=== PATIENT | female | born 1945 | race Caucasian/White ===

== ENCOUNTER 2017-12-26 13:19 | Outpatient (CLI) | payer MEDICARE | END 2017-12-26 13:20 | disposition home or self-care (01) | LOC: BICMAMMO 13:19 | PROVIDERS: ATTEND Family Medicine | DX: Z12.31 Encounter for screening mammogram for malignant neoplasm of breast (principal) | CPT/HCPCS: 77063; 77067 ==

== ENCOUNTER 2018-10-29 12:36 | Outpatient (CLI) | payer MEDICARE ==
[2018-10-29 13:15] LABS: ALT (SGPT) 17 U/L (8-55); AST (SGOT) 18 U/L (5-34); Albumin 4.1 g/dL (3.4-4.8); Alkaline Phosphatase 80 U/L (40-150); Anion Gap 13 mmol/L (10-20); BUN (Urea Nitrogen) 9 mg/dL (9.8-20.1); Bilirubin, Total 0.4 mg/dL (0.2-1.2); Calc. Creatinine Clearance 0 mL/min (70-130); Calcium 9.8 mg/dL (7.8-10.44); Carbon Dioxide 29 mmol/L (23-31); Chloride 87 mmol/L (98-107); Estimated GFR-MDRD 76; Globulin 2.5 g/dL (2.4-3.5); Glucose 93 mg/dL (83-110); Potassium 4.1 mmol/L (3.5-5.1); Protein, Total 6.6 g/dL (6.0-8.3); Sodium 125 mmol/L (136-145)
--- NOTE | 2018-10-29 13:36 | RAD ---
PORTABLE AP CHEST XRAY: DATE: 10/29/2018. HISTORY: Shortness of breath. COMPARISON: 08/23/2017. FINDINGS: Dual-lead left subclavian cardiac pacemaking device is again noted in place. Postsurgical changes re lated to median sternotomy and cardiac valve replacement are again noted. There is prominent right s coliosis of the thoracic spine with compensatory curvature of the lower thoracic and upper lumbar spi ne. Cardiac silhouette and pulmonary vasculature are within normal limits. The lungs are clear. Va scular calcification is seen in the thoracic aorta. IMPRESSION: 1. No acute cardiopulmonary process. 2. Severe scoliosis of the thoracic spine. POS: [facility]
[2018-10-29 13:42] LABS: Band 2 % (5-11); Eosinophils 1 % (0-10); Hemoglobin 10.4 g/dL (12.0-16.0); Hypochromia SLIGHT = 6-15 cells (100X) (0-5/hpf); Lymphocytes 11 % (21-51); MDiff Complete? YES; Mean Corpuscular Hemoglobin 23.2 pg (27.0-31.0); Mean Platelet Volume 8.5 fL (7.4-10.4); Microcytosis SLIGHT = 6-15 cells (100X) (0-5/hpf); Monocytes 10 % (0-10); Neutrophil 75 % (42-75); Ovalocytes SLIGHT = 2-5 cells (100X) (0-1/hpf); Platelet Count 368 thou/uL (130-400); Platelet Morphology Comment Appears Adequate; RBC Distribution Width 15.9 % (11.5-14.5); Red Blood Cell (RBC) Count 4.47 mill/uL (4.20-5.40); Stomatocytes SLIGHT = 2-5 cells (100X) (0-1/hpf)
[2018-10-29 13:46] LABS: Free T4 (Free Thyroxine) 1.38 ng/dL (0.70-1.48); Thyroid Stimulating Hormone 2.3389 uIU/mL (0.35-4.94)
== END 2018-10-29 12:37 | disposition home or self-care (01) ==
LOC: SCSRAD 12:36
PROVIDERS: ATTEND Family Medicine
DX: R06.02 Shortness of breath (principal); E03.9 Hypothyroidism, unspecified; R53.81 Other malaise; M41.9 Scoliosis, unspecified
CPT/HCPCS: 36415; 71046; 80053; 83880; 84439; 84443; 85025

== ENCOUNTER 2018-10-30 10:08 | Inpatient (IN) | payer MEDICARE ==
[2018-10-30 11:21] LABS: Troponin I Less than 0.010 ng/mL (< 0.028)
[2018-10-30 13:09] LABS: Bilirubin Negative (Negative); Blood, Urine Negative (Negative); Clarity CLEAR (Clear); Glucose, Urine (Dipstick) Negative (Negative); Leukocyte Moderate (Negative); Nitrite Negative (Negative); Protein, Urine (Dipstick) Negative (Neg-Trace); Specific Gravity, Urine 1.007 (1.002-1.036); Urobilinogen 0.2 mg/dL (0.2-1.0)
[2018-10-30 13:14] LABS: Sodium, Urine 55 mmol/L (Not Available)
[2018-10-30 13:16] LABS: Bacteria/HPF 4+ HPF (None Seen); Hyaline Casts/LPF 0-3 HYALINE CAST LPF (0-3 Hyaline); Pathc Cast-AUWi Flag 0.29 (0-2.49); RBC/HPF 0-3 HPF (0-3); Squamous Epithelial 0-3 HPF (0-3)
[2018-10-30 13:24] LABS: Anion Gap 14 mmol/L (10-20); BUN (Urea Nitrogen) 9 mg/dL (9.8-20.1); Calc. Creatinine Clearance 0 mL/min (70-130); Calcium 9.4 mg/dL (7.8-10.44); Carbon Dioxide 27 mmol/L (23-31); Chloride 86 mmol/L (98-107); Estimated GFR-MDRD 76; Glucose 94 mg/dL (83-110); Potassium 4.1 mmol/L (3.5-5.1); Sodium 123 mmol/L (136-145)
[2018-10-30] MEDS ORDERED: Acetaminophen 325 MG TAB PO PRN (14:55)
[2018-10-30] MEDS ORDERED: Ondansetron PF 4 MG/2 ML Vial IVP PRN (14:55)
[2018-10-30] MEDS ORDERED: Ondansetron ODT 4 MG TAB SL PRN (14:55)
[2018-10-30 15:04] VITALS: BMI 33.3
[2018-10-30 15:53] LABS: Osmolality, Urine 198 mOsm/kg (200-1150)
[2018-10-30] MEDS ORDERED: Albuterol Sulfate 1.25 MG/3 ML NEB NEB SCH (19:00)
[2018-10-30] MEDS ORDERED: Sodium Chloride 0.9% 500 ML IV SCH (19:00)
[2018-10-30 19:55] LABS: Sodium 124 mmol/L (136-145)
[2018-10-30] MEDS: Lisinopril 20 MG TAB PO SCH ×2 (20:59→21:01)
--- NOTE | 2018-10-30 20:59 | HP ---
REASON FOR ADMISSION: Hyponatremia. HISTORY OF PRESENT ILLNESS: Ms. Leonardo is a pleasant 73-year-old woman who has been referred to the ED by her primary care physician, Dr. Harding due to labs indicated that she is hyponatremic. The patient was seen by Dr. Harding yesterday due to complaints of shakiness and lightheadedness for the last 2 to 3 weeks. She denies a spinning sensation and states that she feels weak and off balance when she stands. She states she has had increased shortness of breath with exertion for the last 2-3 months. She underwent a chest x-ray after seeing Dr. Harding yesterday, which showed no acute cardiopulmonary changes. It did demonstrate severe scoliosis of the thoracic spine. Otherwise unremarkable. The patient's sodium has chronically been low in the low 130s, however, today it came back at 123. The patient is asymptomatic from this. Apparently, she has been drinking excess fluids due to Sjogren syndrome. She is also on hydrochlorothiazide. The patient states she has a history of valve disorder and previously underwent a valve replacement. She is followed by Dr. Jones, who she was scheduled to see tomorrow. Additional laboratory studies were obtained in the ER and again the sodium was low 123. BUN 9, creatinine 0.75, eGFR 76. Her serum osmolality is 253 and urine osmolality is 198 with a urine sodium of 55. REVIEW OF SYSTEMS: Ms. Leonardo states she has felt generally unwell for the last 2-3 months with regard to a decreased appetite. She continues to eat and drink, but states she notices it is less than her usual. Since August, she has lost approximately 6 pounds. She reports feeling very tired and has been quite sedentary since early this week. She denies having any fevers, chills, or sweats. Denies having any headaches or dizziness. She just complains of general malaise and occasional tremors in both hands, which has been going on for about a week. Again, she mentions lightheadedness whenever she stands and increased shortness of breath with exertion for the last two weeks. Denies any chest pain. No cough or hemoptysis. Denies having any nausea or vomiting. No abdominal pain or cramping. Denies having any urinary symptoms. No bowel changes. All other review of systems are negative. PAST MEDICAL HISTORY: 1. Allergy-induced aspirin. 2. Hypothyroidism. 3. Pacemaker in place. 4. Status post aortic valve replacement. 5. Sjogren syndrome. 6. Restless legs syndrome. 7. Hypertension. PAST SURGICAL HISTORY: 1. Previous aortic valve replacement. 2. Status post permanent pacemaker. She is status post dual-chamber pacemaker. SOCIAL HISTORY: The patient lives with her . She is normally fully independent and does not require any assistive devices for mobility. Denies any smoking history or alcohol use. ALLERGIES: 1. ATROPINE. 2. PENICILLINS. CURRENT MEDICATIONS: 1. Hydrochlorothiazide 25 mg p.o. daily. 2. Bupropion SR 100 mg p.o. twice daily. 3. Evoxac 30 mg p.o. 3 times daily. 4. two puffs inhaled daily. 5. Esomeprazole 10 mg p.o. daily. 6. Levothyroxine 100 mcg p.o. daily. 7. Lisinopril 20 mg p.o. b.i.d. 8. Metoprolol succinate 25 mg p.o. b.i.d. PHYSICAL EXAMINATION: GENERAL: The patient appears well developed, well nourished, is in no acute distress. VITAL SIGNS: Temperature 98.1, pulse 78, respirations 16, O2 saturation 94% on room air, blood pressure 114/54. HEENT: Normocephalic and atraumatic. Pupils are equal, round, and reactive to light. Sclerae are without icterus. Oropharynx is clear. NECK: Supple without lymphadenopathy. LUNGS: Notable for mild inspiratory wheeze on the anterior chest, otherwise all remaining lung holloway clear of any rhonchi, wheezes, or crackles. CARDIAC: Regular rate and rhythm. ABDOMEN: Soft, nontender, and nondistended. Normoactive bowel sounds present. EXTREMITIES: Without any edema, calf pain, swelling, or tenderness. NEUROLOGIC: Alert and oriented x3. SKIN: Without rash or jaundice. LABORATORY DATA: Investigations as mentioned above in HPI. Urinalysis, moderate leukocyte esterase, urine blood cell count 4-6, bacteria 4+. No nitrates. IMPRESSION AND PLAN: Ms. Leonardo is a pleasant 73-year-old woman, being admitted for management of the following. 1. Hyponatremia. The patient usually has a chronically low sodium in the low 130s, however, today is much lower at 123. She has been drinking more fluids due to Sjogren's and is on hydrochlorothiazide. 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 We will request fluid restriction of 1200 mL per day. We will check sodium every 4 hours. We will hold hydrochlorothiazide. 2. Progressive dyspnea on exertion. The patient has had increased shortness of breath on exertion for the last two months. She has had a previous aortic valve replacement and has a permanent pacemaker. She is followed by Dr. Jones, who she was due to see tomorrow. We have requested an echo and BNP. Day team to assess if cardiology input needed as inpatient or if patient okay to follow up as an outpatient. 3. Weakness. The patient states she has felt rather weak in the last couple of days. This could be due to general deconditioning and ongoing issues with her appetite. She did mention lightheadedness when standing. We will check orthostatic blood pressures. We will also rule out any underlying infection such as urinary tract infection. Urine culture requested. 4. Gastrointestinal prophylaxis. Resume home medications. 5. Hypertension. Monitor blood pressure and resume home medications. 6. Deep venous thrombosis prophylaxis. Mechanical SCDs. 7. Full code status. The patient does have a copy of her advance directives, which her will bring. Her surrogate decision maker is her , Mr. Sivakumar Leonardo. The patient's case was discussed with Dr. Castillo, who agrees with plan of care as described above. Job ID: [id number]
[2018-10-30 23:53] LABS: Sodium 125 mmol/L (136-145)
[2018-10-31] MEDS: Levothyroxine Sodium 100 MCG TAB PO SCH (05:25)
[2018-10-31 05:36] LABS: #Neutrophils 5.4 thou/uL (1.40-6.50); %Basophils 0.4 % (0.0-1.0); %Eosinophils 0.5 % (0.0-10.0); %Lymphocytes 13.4 % (21.0-51.0); %Monocytes 13.6 % (0.0-10.0); %Neutrophils 72.1 % (42.0-75.0); Hemoglobin 9.9 g/dL (12.0-16.0); Mean Corpuscular HGB CONC 31.3 g/dL (32.0-36.0); Mean Corpuscular Hemoglobin 23.9 pg (27.0-31.0); Mean Corpuscular Volume 76.6 fL (78.0-98.0); Mean Platelet Volume 8.6 fL (7.4-10.4); Platelet Count 327 thou/uL (130-400); RBC Distribution Width 15.5 % (11.5-14.5); Red Blood Cell (RBC) Count 4.13 mill/uL (4.20-5.40); White Blood Cell (WBC) Count 7.4 thou/uL (4.8-10.8)
[2018-10-31 05:57] LABS: ALT (SGPT) 14 U/L (8-55); AST (SGOT) 15 U/L (5-34); Albumin 3.6 g/dL (3.4-4.8); Alkaline Phosphatase 77 U/L (40-150); Anion Gap 12 mmol/L (10-20); BUN (Urea Nitrogen) 12 mg/dL (9.8-20.1); Bilirubin, Total 0.4 mg/dL (0.2-1.2); Calc. Creatinine Clearance 85 mL/min (70-130); Calcium 9.7 mg/dL (7.8-10.44); Carbon Dioxide 31 mmol/L (23-31); Chloride 87 mmol/L (98-107); Estimated GFR-MDRD 72; Globulin 2.2 g/dL (2.4-3.5); Glucose 88 mg/dL (83-110); Potassium 4.2 mmol/L (3.5-5.1); Protein, Total 5.8 g/dL (6.0-8.3); Sodium 126 mmol/L (136-145)
[2018-10-31] MEDS: Lisinopril 20 MG TAB PO SCH ×2 (09:47→22:52)
[2018-10-31] MEDS: Fluticasone Propionate Nasal Spray 16 gm Bottle NASAL SCH (09:48)
[2018-10-31 11:11] LABS: Sodium 125 mmol/L (136-145)
--- NOTE | 2018-10-31 12:59 | PDOC.PN ---
- Subjective Encounter Start Date: 10/31/18 Encounter Start Time: 12:58 Subjective: Admitted due to low sodium as well as weakness. No new problem. -: Patient with sjogrens associated with dry admitted to drinking water -: frequently. - Objective Vital Signs & Weight: Vital Signs (12 hours) Temp Pulse Resp BP BP Pulse Ox 10/31/18 12:00 98.5 F 77 16 118/56 L 97 10/31/18 08:00 98.1 F 72 20 135/63 96 10/31/18 05:23 98.3 F 67 16 112/56 L 97 Weight Weight 181 lb 1.6 oz I&O: 10/30/18 10/31/18 11/01/18 06:59 06:59 06:59 Intake Total 650 Output Total 1400 300 Balance -750 -300 Result Diagrams: 10/31/18 04:25 10/31/18 10:50 Phys Exam - Physical Examination HEENT: PERRLA, moist MMs Neck: no JVD, supple, full ROM Respiratory: no wheezing, no rales, no rhonchi Cardiovascular: RRR, no rub 3/3 systolic murmur noted Gastrointestinal: soft, non-tender, no distention, positive bowel sounds Obese. epigastric tenderness Musculoskeletal: no edema, pulses present Neurological: non-focal, normal sensation, moves all 4 limbs Psychiatric: normal affect, A&O x 3 Dx/Plan (1) Hyponatremia Code(s): E87.1 - HYPO-OSMOLALITY AND HYPONATREMIA Status: Acute Comment: This most likely due to HCTZ and excess free water intake due to dry mouth. SIADH is unlikely given low urine osmolality relaative to serum osmolality (2) Physical deconditioning Code(s): R53.81 - OTHER MALAISE Status: Acute (3) HTN (hypertension) Code(s): I10 - ESSENTIAL (PRIMARY) HYPERTENSION Status: Acute (4) Sjogrens syndrome Code(s): M35.00 - SICCA SYNDROME, UNSPECIFIED Status: Acute (5) S/P aortic valve replacement Code(s): Z95.2 - PRESENCE OF PROSTHETIC HEART VALVE Status: Acute (6) Status post placement of cardiac pacemaker Code(s): Z95.0 - PRESENCE OF CARDIAC PACEMAKER Status: Acute - Plan Await echo -: Water restriction to continue -: DC HCTZ -: Consult PT/OT * .
[2018-10-31] MEDS: Bupropion 100 MG SR TAB PO SCH ×2 (13:44→20:53)
[2018-10-31] MEDS: CEVIMELINE HCL PO SCH ×3 (18:50→21:00)
[2018-10-31] MEDS: Melatonin 3 MG TAB PO PRN (20:53)
[2018-10-31] MEDS ORDERED: Sodium Chloride 0.9% 10 ML ONE (22:47)
[2018-11-01] MEDS: Levothyroxine Sodium 100 MCG TAB PO SCH (06:22)
[2018-11-01 07:22] LABS: ALT (SGPT) 13 U/L (8-55); AST (SGOT) 15 U/L (5-34); Albumin 3.6 g/dL (3.4-4.8); Alkaline Phosphatase 77 U/L (40-150); Anion Gap 11 mmol/L (10-20); BUN (Urea Nitrogen) 10 mg/dL (9.8-20.1); Bilirubin, Total 0.4 mg/dL (0.2-1.2); Calc. Creatinine Clearance 86 mL/min (70-130); Calcium 9.2 mg/dL (7.8-10.44); Carbon Dioxide 30 mmol/L (23-31); Chloride 89 mmol/L (98-107); Estimated GFR-MDRD 73; Globulin 2.2 g/dL (2.4-3.5); Glucose 91 mg/dL (83-110); Potassium 3.9 mmol/L (3.5-5.1); Protein, Total 5.8 g/dL (6.0-8.3); Sodium 126 mmol/L (136-145)
[2018-11-01 08:01] LABS: Band 5 % (5-11); Hemoglobin 9.9 g/dL (12.0-16.0); Lymphocytes 9 % (21-51); MDiff Complete? YES; Mean Corpuscular HGB CONC 31.3 g/dL (32.0-36.0); Mean Corpuscular Volume 76.7 fL (78.0-98.0); Mean Platelet Volume 8.5 fL (7.4-10.4); Monocytes 13 % (0-10); Neutrophil 73 % (42-75); Platelet Count 328 thou/uL (130-400); RBC Distribution Width 15.5 % (11.5-14.5); Red Blood Cell (RBC) Count 4.11 mill/uL (4.20-5.40)
[2018-11-01] MEDS: CEVIMELINE HCL PO SCH ×3 (08:03→17:03)
[2018-11-01] MEDS ORDERED: Sodium Chloride 0.9% 10 ML ONE ×2 (08:55→17:50)
[2018-11-01] MEDS: Bupropion 100 MG SR TAB PO SCH ×2 (08:59→21:41)
[2018-11-01] MEDS: Lisinopril 20 MG TAB PO SCH ×2 (09:00→21:41)
[2018-11-01] MEDS: Sodium Chloride 0.9% 10 ML ONE (09:02)
[2018-11-01 09:43] LABS: Iron 19 ug/dL (50-170); Iron Binding Capacity, Total 325 mcg/dL (265-497)
[2018-11-01] MEDS ORDERED: IRON SUCROSE COMPLEX 100 MG/5 ML SLOW IVP SCH (10:00)
[2018-11-01] MEDS: Fluticasone Propionate Nasal Spray 16 gm Bottle NASAL SCH (11:09)
[2018-11-01] MEDS ORDERED: Iron Sucrose Complex 200 MG in Sodium Chloride 0.9% 100 ML IVPB SCH (11:15)
[2018-11-01] MEDS ORDERED: Sodium Chloride 0.9% 500 ML IV SCH (11:30)
--- NOTE | 2018-11-01 12:37 | PDOC.PN ---
- Subjective Encounter Start Date: 11/01/18 Encounter Start Time: 12:35 Subjective: FEELS WELL. SOME SHAKING AFTER SHE WALKED IN HALLWAYS -: care discussed w family over phone - Objective MAR Reviewed: Yes Vital Signs & Weight: Vital Signs (12 hours) Temp Pulse Resp BP BP BP Pulse Ox 11/01/18 11:56 98.3 F 77 18 122/58 L 96 11/01/18 09:00 116/56 L 11/01/18 07:00 98.2 F 76 14 116/56 L 97 11/01/18 04:30 98.5 F 75 18 124/61 11/01/18 00:58 98.4 F 82 16 139/63 Weight Weight 181 lb 1.6 oz I&O: 10/31/18 11/01/18 11/02/18 06:59 06:59 06:59 Intake Total 650 170 Output Total 1400 300 Balance -750 -130 Result Diagrams: 11/01/18 06:19 11/01/18 06:19 Additional Labs: Laboratory Tests 10/30/17 04/30/18 05/15/18 12:02 11:43 12:09 Sodium 132 L 129 L 130 L B-Natriuretic Peptide 08/22/18 10/29/18 10/30/18 15:18 12:40 12:52 Sodium 131 L 125 L 123 L B-Natriuretic Peptide 10/30/18 10/30/18 10/30/18 19:29 19:36 23:32 Sodium 124 L 125 L B-Natriuretic Peptide 93.2 10/31/18 10/31/18 11/01/18 04:25 10:50 06:19 Sodium 126 L 125 L 126 L B-Natriuretic Peptide Phys Exam - Physical Examination Constitutional: NAD HEENT: PERRLA, moist MMs, sclera anicteric, oral pharynx no lesions Neck: no nodes, no JVD, supple, full ROM Respiratory: no wheezing, no rales, no rhonchi, clear to auscultation bilateral Cardiovascular: RRR, no significant murmur, no rub Gastrointestinal: soft, non-tender, no distention, positive bowel sounds Musculoskeletal: no edema, pulses present Neurological: non-focal, normal sensation, moves all 4 limbs Psychiatric: normal affect, A&O x 3 Skin: no rash Dx/Plan (1) Hyponatremia Code(s): E87.1 - HYPO-OSMOLALITY AND HYPONATREMIA Status: Acute Comment: This most likely due to HCTZ and excess free water intake due to dry mouth. SIADH is unlikely given low urine osmolality relaative to serum osmolality (2) UTI (urinary tract infection) Status: Acute (3) MARY (iron deficiency anemia) Code(s): D50.9 - IRON DEFICIENCY ANEMIA, UNSPECIFIED Status: Chronic (4) HTN (hypertension) Code(s): I10 - ESSENTIAL (PRIMARY) HYPERTENSION Status: Acute (5) S/P aortic valve replacement Code(s): Z95.2 - PRESENCE OF PROSTHETIC HEART VALVE Status: Acute (6) Sjogrens syndrome Code(s): M35.00 - SICCA SYNDROME, UNSPECIFIED Status: Acute (7) Status post placement of cardiac pacemaker Code(s): Z95.0 - PRESENCE OF CARDIAC PACEMAKER Status: Acute - Plan plan discussed w/ family, out of bed/ambulate, DVT proph w/SCDs urine Cx. empiric IV ABx. -: cont fluid restriction.1000ml/day fo rnow.HCTZ stopped.Pt educated -: recheck sodium in afternoon and tomorrow am -: Chr hyponatremia w/o symptoms.Likely DC home tomorrow. -: will give IV iron today & start PO tomorrow * .ECHO results pending * am labs Review of Systems - Review of Systems Constitutional: weakness. negative: fever, chills, sweats, malaise, other ENT: negative: Ear Pain, Ear Discharge, Nose Pain, Nose Discharge, Nose Congestion, Mouth Pain, Mouth Swelling, Throat Pain, Throat Swelling, Other Respiratory: negative: Cough, Dry, Shortness of Breath, Hemoptysis, SOB with Excertion, Pleuritic Pain, Sputum, Wheezing Cardiovascular: negative: chest pain, palpitations, orthopnea, paroxysmal nocturnal dyspnea, edema, light headedness, other Gastrointestinal: negative: Nausea, Vomiting, Abdominal Pain, Diarrhea, Constipation, Melena, Hematochezia, Other Genitourinary: negative: Dysuria, Frequency, Incontinence, Hematuria, Retention , Other Musculoskeletal: negative: Neck Pain, Shoulder Pain, Arm Pain, Back Pain, Hand Pain, Leg Pain, Foot Pain, Other Neurological: negative: Weakness, Numbness, Incoordination, Change in Speech, Confusion, Seizures, Other - Medications/Allergies Allergies/Adverse Reactions: Allergies Allergy/AdvReac Type Severity Reaction Status Date / Time atropine Allergy Verified 05/11/15 11:15 Penicillins Allergy Hives Verified 05/11/15 11:15 Medications: Current Medications Bupropion HCl (Wellbutrin Sr) 100 mg PO BID [facility] Last Admin: 11/01/18 08:59 Dose: 100 mg Ferrous Gluconate (Fergon) 324 mg PO BID-[facility] Fluticasone Propionate (Flonase Nasal Sodus) 0 gm NASAL DAILY [facility] Last Admin: 11/01/18 11:09 Dose: 2 spr Levofloxacin 500 mg/ Device 100 mls @ 100 mls/hr IVPB 1000 [facility] Last Admin: 11/01/18 11:34 Dose: 100 mls Iron Sucrose 200 mg/ Sodium (Chloride) 110 mls @ 220 mls/hr IVPB 1115 [facility] Stop: 11/01/18 14:00 Sodium Chloride (Normal Saline 0.9%) 500 mls @ 0 mls/hr IV .Q0M [facility] Levothyroxine Sodium (Synthroid) 100 mcg PO 0600 [facility] Last Admin: 11/01/18 06:22 Dose: 100 mcg Lisinopril (Zestril) 20 mg PO BID [facility] Last Admin: 11/01/18 09:00 Dose: 20 mg Melatonin (Melatonin) 3 mg PO HS PRN PRN Reason: Insomnia Last Admin: 10/31/18 20:53 Dose: 3 mg Metoprolol Succinate (Toprol Xl) 25 mg PO BID [facility] Last Admin: 11/01/18 11:09 Dose: 25 mg (Cevimeline Hcl [ (Evoxac] 1 Tab)) 1 tab PO TID [facility] Last Admin: 11/01/18 08:03 Dose: 1 tab Pantoprazole Sodium (Protonix) 40 mg PO DAILY [facility] Last Admin: 11/01/18 09:00 Dose: 40 mg
[2018-11-01 15:17] LABS: Sodium 127 mmol/L (136-145)
[2018-11-01] MEDS: Ferrous Gluconate 324 MG TAB PO SCH (17:28)
[2018-11-01] MEDS: Melatonin 3 MG TAB PO PRN (22:10)
[2018-11-02 07:09] LABS: Anion Gap 11 mmol/L (10-20); BUN (Urea Nitrogen) 8 mg/dL (9.8-20.1); Calc. Creatinine Clearance 92 mL/min (70-130); Calcium 9.6 mg/dL (7.8-10.44); Carbon Dioxide 30 mmol/L (23-31); Chloride 90 mmol/L (98-107); Estimated GFR-MDRD 79; Glucose 92 mg/dL (83-110); Potassium 3.9 mmol/L (3.5-5.1); Sodium 127 mmol/L (136-145)
[2018-11-02] MEDS: CEVIMELINE HCL PO SCH (07:39)
[2018-11-02] MEDS: Bupropion 100 MG SR TAB PO SCH (07:39)
[2018-11-02] MEDS: Fluticasone Propionate Nasal Spray 16 gm Bottle NASAL SCH (07:40)
[2018-11-02] MEDS: Ferrous Gluconate 324 MG TAB PO SCH (07:40)
[2018-11-02] MEDS: Lisinopril 20 MG TAB PO SCH (07:43)
[2018-11-02] MEDS: Levothyroxine Sodium 100 MCG TAB PO SCH (07:44)
[2018-11-02] MEDS: Sodium Chloride 0.9% 10 ML ONE (10:11)
[2018-11-02] MEDS ORDERED: Acetaminophen 325 MG TAB PO PRN (10:51)
[2018-11-02 12:08] LABS: Sodium, Urine 27 mmol/L (Not Available)
[2018-11-02 12:45] VITALS: BP 135/60; TEMP 98.8
[2018-11-02 13:37] LABS: Osmolality, Urine 166 mOsm/kg (200-1150)
--- NOTE | 2018-11-03 12:23 | CON ---
DATE OF CONSULTATION: REASON FOR CONSULTATION: Hyponatremia. IMPRESSION: Hyponatremia hydrochlorothiazide. PLAN: 1. Discuss free water restriction. 2. Discontinue hydrochlorothiazide. 3. followup within 2 weeks status post discharge. HISTORY OF PRESENT ILLNESS: A 73-year-old female patient admitted because of hyponatremia. The patient hyponatremia. PAST MEDICAL HISTORY: Significant for hypertension, allergy-induced hypothyroidism, status post aortic valve replacement, Sjogren syndrome, restless legs syndrome, ALLERGIES: 1. ATROPINE. 2. PENICILLINS. SOCIAL HISTORY: No tobacco. No illicit drug use or alcohol use. CURRENT MEDICATIONS: Reviewed and as documented in [facility]. PHYSICAL EXAMINATION: GENERAL: The patient was found not to be in any obvious distress, noted with the following vital signs. VITAL SIGNS: Temperature 98.1, pulse 87, respiratory rate of 20, O2 saturation 97%, and blood pressure 150/71. HEENT: Unremarkable. CARDIOVASCULAR SYSTEM: First and second heart sounds were heard. RESPIRATORY SYSTEM: Clear to auscultation. DIGESTIVE SYSTEM: Revealed a benign abdomen with positive bowel sounds. EXTREMITIES: No peripheral edema. SKIN: No new gross rash. LYMPHATICS: No peripheral lymphadenopathy. ASSESSMENT AND PLAN: In summary, this is a 73-year-old female patient with hyponatremia suspect of hydrochlorithiazide usage. Job ID: [id number]
--- NOTE | 2018-11-03 12:56 | DIS ---
DATE OF ADMISSION: 10/31/2018 DATE OF DISCHARGE: 11/02/2018 CONDITION: At the time of discharge, stable and improved. DISCHARGE DISPOSITION: Home. PRIMARY CARE PHYSICIAN: Dr. Stephan Harding. DISCHARGE DIAGNOSES: 1. Hyponatremia secondary to hydrochlorothiazide. 2. Urinary tract infection. 3. Hypertension. 4. History of Sjogren syndrome. 5. History of aortic valve replacement. 6. Iron deficiency anemia, status post IV iron infusion. 7. History of pacemaker. DISCHARGE MEDICATIONS: Discharge medications remain the same as admission medication. Discontinue hydrochlorothiazide. New medications; Levaquin 500 mg daily for 7 days. Ferrous sulfate 325 mg p.o. b.i.d. IN-HOUSE CONSULTATION: Nephrology, Dr. Germain. HISTORY OF PRESENTING ILLNESS: Ms. Leonardo is a pleasant 73-year-old female with past medical history as outlined above, who presented to the emergency room with complaints of abnormal labs through her primary care physician's office. She was seen there for complaints of shakiness and lightheadedness for few weeks and generalized weakness as well as worsening shortness of breath with exertion. She normally has chronically low sodium in the low 130s, but it came back low at 123, so she was sent to the ER. Recheck in the ER was also 123 for sodium. Rest of her workup was unremarkable. She was admitted for further workup. Please see admission history and physical for further details. She was noticeably on hydrochlorothiazide, which was stopped. There was also some concern for psychogenic polydipsia as the patient has Sjogren syndrome and has chronically dry mouth. HOSPITAL COURSE: The patient was put on fluid restriction and her sodium improved gradually. She was seen by Nephrology, who recommended the same as holding the hydrochlorothiazide. Her sodium improved to 127. She was found to have iron deficiency anemia with low iron levels, which was transfused with IV iron. She was also started on iron supplements. She was also found to have urinary tract infection and was empirically started on levofloxacin. Urine culture is pending and she will follow the results with the primary care physician. I have seen and examined the patient prior to discharge and she is walking in the hallways and has no new complaints and feels much better. I suspect most of her symptoms is secondary to iron deficiency anemia rather than hyponatremia. PHYSICAL EXAMINATION: VITAL SIGNS: This morning; temperature 98.1, pulse 87, respirations are 20, and blood pressure 150/71. GENERAL: In no acute distress. Awake, alert, and oriented x3. CHEST: Clear to auscultation bilaterally. HEART: Rhythm is regular. The patient is cleared from Nephrology for discharge. Pending labs. Echocardiogram was ordered and the results are pending. She will follow up with either primary care physician or her primary family practitioner, Dr. Jones for the results. Her BNP and chest x-ray were within normal limits and unremarkable at presentation. TOTAL TIME SPENT: 32 minutes. Job ID: [id number]
== END 2018-11-02 14:02 | disposition home or self-care (01) | DRG 641 ==
LOC: SCSER 10:08 → ERHOLD 12:17 → 2SW 15:18 → OBSVTOIN 10-31 15:28 → 3SE 10-31 18:11
PROVIDERS: ADMIT Internal Medicine; ATTEND Internal Medicine
DX: E87.1 Hypo-osmolality and hyponatremia (principal); N39.0 Urinary tract infection, site not specified; T50.2X5A Adverse effect of carbonic-anhydrase inhibitors, benzothiadiazides and other diuretics, initial encounter; D50.9 Iron deficiency anemia, unspecified; M41.84 Other forms of scoliosis, thoracic region; M35.00 Sjogren syndrome, unspecified; E03.9 Hypothyroidism, unspecified; G25.81 Restless legs syndrome; I10 Essential (primary) hypertension; Z95.0 Presence of cardiac pacemaker; Z95.2 Presence of prosthetic heart valve; Z79.899 Other long term (current) drug therapy; Z88.8 Allergy status to other drugs, medicaments and biological substances; Z88.0 Allergy status to penicillin
CPT/HCPCS: 36415; 80048; 80053; 81003; 81015; 83540; 83550; 83880; 83930; 83935; 84295; 84300; 84443; 84484; 85025; 85379; 87086; 93005; 93306; 94640; J1756; J1956; J7050

== ENCOUNTER 2018-12-07 17:14 | Emergency (ER) | payer MEDICARE ==
[2018-12-07 17:40] LABS: Hemoglobin 13.3 g/dL (12.0-16.0); Mean Corpuscular HGB CONC 30.4 g/dL (32.0-36.0); Mean Corpuscular Hemoglobin 23.8 pg (27.0-31.0); Mean Corpuscular Volume 78.3 fL (78.0-98.0); Mean Platelet Volume 8.7 fL (7.4-10.4); Platelet Count 321 thou/uL (130-400); RBC Distribution Width 17.8 % (11.5-14.5); Red Blood Cell (RBC) Count 5.59 mill/uL (4.20-5.40); White Blood Cell (WBC) Count 9.6 thou/uL (4.8-10.8)
[2018-12-07 17:49] LABS: #Basophils 0.1 thou/uL (0.0-0.2); #Eosinphils 0.1 thou/uL (0.0-0.7); #Lymphocytes 1.5 thou/uL (1.20-3.40); #Monocytes 0.7 thou/uL (0.11-0.59); #Neutrophils 7.2 thou/uL (1.40-6.50); %Basophils 1.3 % (0.0-1.0); %Eosinophils 0.7 % (0.0-10.0); %Lymphocytes 15.5 % (21.0-51.0); %Monocytes 7.6 % (0.0-10.0); MDiff Complete? YES; Microcytosis SLIGHT = 6-15 cells (100X) (0-5/hpf); Ovalocytes SLIGHT = 2-5 cells (100X) (0-1/hpf); Platelet Morphology Comment Appears Adequate; Polychromasia SLIGHT = 2-3 cells (100X) (0-2/hpf); Stomatocytes SLIGHT = 2-5 cells (100X) (0-1/hpf)
[2018-12-07 17:51] LABS: Acetaminophen Less than 6.0 mcg/mL (10.0-30.0); Alcohol Less than 10 mg/dL (Less than 10); Salicylate Less than 8.0 mg/dL (15.0-30.0)
[2018-12-07 17:54] LABS: ALT (SGPT) 14 U/L (8-55); AST (SGOT) 17 U/L (5-34); Albumin 4.3 g/dL (3.4-4.8); Alkaline Phosphatase 76 U/L (40-150); Anion Gap 14 mmol/L (10-20); BUN (Urea Nitrogen) 5 mg/dL (9.8-20.1); Bilirubin, Total 0.5 mg/dL (0.2-1.2); CK (CPK) 70 U/L (29-168); Calc. Creatinine Clearance 0 mL/min (70-130); Calcium 9.9 mg/dL (7.8-10.44); Carbon Dioxide 29 mmol/L (23-31); Chloride 96 mmol/L (98-107); Estimated GFR-MDRD 87; Globulin 2.7 g/dL (2.4-3.5); Glucose 99 mg/dL (83-110); Lipase 23 U/L (8-78); Potassium 3.6 mmol/L (3.5-5.1); Sodium 135 mmol/L (136-145)
--- NOTE | 2018-12-07 17:56 | CT ---
FCT brain noncontrast: HISTORY: 73-year-old female with altered mental status, lightheadedness, and dizziness FINDINGS: There is no evidence of acute intra-axial or extra-axial hemorrhage. No mass effect, midline shift, o r extra-axial fluid collection. No evidence of obstructive hydrocephalus. Calvarium is intact. Diffus e brain parenchymal volume loss. IMPRESSION: No acute intracranial findings.
--- NOTE | 2018-12-07 18:01 | RAD ---
FExam: Chest one view HISTORY:Altered mental status, weakness Comparison: 10/29/2018 FINDINGS: Lungs: No masses or consolidation. Cardiac silhouette:The cardiomediastinal silhouette is prominent, stable Pulmonary vessels: Mild engorgement Pleural Spaces: Mild pleural-based density at the inferolateral left chest blunts the costophrenic portillo lcus Pneumothorax: None Osseous abnormalities: None of acuity. IMPRESSION: Stable enlargement of cardiomediastinal silhouette. Mild pleural-based density at the inferior left chest which may relate to pleural fluid and/or pleura l thickening. Recommend follow-up with 2 view chest to confirm resolution.
[2018-12-07 18:03] LABS: Bilirubin Negative (Negative); Blood, Urine Negative (Negative); Clarity Hazy (Clear); Glucose, Urine (Dipstick) Negative (Negative); Leukocyte Moderate (Negative); Nitrite Negative (Negative); Protein, Urine (Dipstick) Negative (Neg-Trace); Urobilinogen 0.2 mg/dL (0.2-1.0)
[2018-12-07 18:09] LABS: Bacteria/HPF 1+ HPF (None Seen); RBC/HPF None Seen HPF (0-3)
[2018-12-07] MEDS ORDERED: Sodium Chloride 0.9% 100 ML ONE (18:09)
[2018-12-07] MEDS ORDERED: cefTRIAXone\\ROCEPHIN 1 GM VIAL ONE (18:09)
[2018-12-07 18:13] LABS: Amphetamine Not Detected (NotDetected); Barbiturates Screen Not Detected (NotDetected); Benzodiazepine Screen Not Detected (NotDetected); Cocaine Metabolite Screen Not Detected (NotDetected); Medtox Control Line Valid? VALID (VALID); Methadone Not Detected (NotDetected); Methamphetamine Not Detected (NotDetected); Opiate Screen Not Detected (NotDetected); Oxycodone Screen Not Detected (NotDetected); Phencyclidine (PCP) Not Detected (NotDetected); THC/Cannabinoid Screen Not Detected (NotDetected); Tricyclic Screen Not Detected (NotDetected)
== END 2018-12-07 18:47 | disposition home or self-care (01) ==
LOC: SCSER 17:14
DX: N39.0 Urinary tract infection, site not specified (principal); E03.9 Hypothyroidism, unspecified; J45.909 Unspecified asthma, uncomplicated; Z79.899 Other long term (current) drug therapy
CPT/HCPCS: 70450; 71045; 80053; 80306; 80307; 81003; 81015; 82550; 83690; 83735; 83880; 84443; 84484; 85025; 87086; 93005; 96365; J0696; J7050

== ENCOUNTER 2018-12-13 12:08 | Emergency (ER) | payer MEDICARE ==
[2018-12-13 12:46] LABS: Bilirubin Negative (Negative); Blood, Urine Negative (Negative); Clarity Clear (Clear); Glucose, Urine (Dipstick) Negative (Negative); Leukocyte Negative (Negative); Nitrite Negative (Negative); Protein, Urine (Dipstick) Negative (Neg-Trace); Urobilinogen 0.2 mg/dL (0.2-1.0)
[2018-12-13 12:52] LABS: #Basophils 0.1 thou/uL (0.0-0.2); #Eosinphils 0.1 thou/uL (0.0-0.7); #Lymphocytes 1.1 thou/uL (1.20-3.40); #Monocytes 0.8 thou/uL (0.11-0.59); #Neutrophils 5.9 thou/uL (1.40-6.50); %Basophils 0.9 % (0.0-1.0); %Eosinophils 0.8 % (0.0-10.0); %Lymphocytes 14.1 % (21.0-51.0); %Monocytes 10.3 % (0.0-10.0); %Neutrophils 73.9 % (42.0-75.0); Anisocytosis SLIGHT = 6-15 cells (100X) (0-5/hpf); Elliptocytes SLIGHT = 2-5 cells (100X) (0-1/hpf); Hemoglobin 12.8 g/dL (12.0-16.0); Hypochromia SLIGHT = 6-15 cells (100X) (0-5/hpf); MDiff Complete? YES; Mean Corpuscular HGB CONC 30.9 g/dL (32.0-36.0); Mean Corpuscular Hemoglobin 24.1 pg (27.0-31.0); Mean Platelet Volume 9.3 fL (7.4-10.4); Microcytosis SLIGHT = 6-15 cells (100X) (0-5/hpf); Platelet Count 323 thou/uL (130-400); Platelet Morphology Comment Appears Adequate; RBC Distribution Width 17.4 % (11.5-14.5); Stomatocytes SLIGHT = 2-5 cells (100X) (0-1/hpf); Tear Drops SLIGHT = 2-5 cells (100X) (0-1/hpf)
[2018-12-13 12:53] LABS: ALT (SGPT) 13 U/L (8-55); AST (SGOT) 13 U/L (5-34); Albumin 4.2 g/dL (3.4-4.8); Alkaline Phosphatase 79 U/L (40-150); Anion Gap 14 mmol/L (10-20); BUN (Urea Nitrogen) 7 mg/dL (9.8-20.1); Bilirubin, Total 0.3 mg/dL (0.2-1.2); Calc. Creatinine Clearance 0 mL/min (70-130); Calcium 9.6 mg/dL (7.8-10.44); Carbon Dioxide 31 mmol/L (23-31); Chloride 95 mmol/L (98-107); Estimated GFR-MDRD 82; Globulin 2.6 g/dL (2.4-3.5); Glucose 99 mg/dL (83-110); Lipase 35 U/L (8-78); Potassium 3.5 mmol/L (3.5-5.1); Protein, Total 6.8 g/dL (6.0-8.3); Sodium 136 mmol/L (136-145)
--- NOTE | 2018-12-13 12:54 | RAD ---
EXAM: Two views chest PROVIDED CLINICAL HISTORY: Generalized weakness COMPARISON: 10/29/2018 FINDINGS: Cardiomediastinal silhouette unchanged in appearance. Median sternotomy changes, left subclavian card iac pacing device and vascular calcification as well as prosthetic cardiac valve redemonstrated. Lungs appear free of significant opacity. No pleural fluid or pneumothorax apparent. Thoracic scolios is is again seen. IMPRESSION: No evidence for an acute cardiopulmonary process.
== END 2018-12-13 15:10 | disposition home or self-care (01) ==
LOC: SCSER 12:08
DX: R53.1 Weakness (principal); E03.9 Hypothyroidism, unspecified; J45.909 Unspecified asthma, uncomplicated; I38 Endocarditis, valve unspecified; Z79.899 Other long term (current) drug therapy
CPT/HCPCS: 36415; 71046; 80053; 81003; 83605; 83690; 84484; 85025; 93005

== ENCOUNTER 2018-12-22 15:41 | Day surgery (SDC) | payer MEDICARE ==
[2018-12-22 16:22] LABS: Hemoglobin 12.9 g/dL (12.0-16.0); Mean Corpuscular HGB CONC 30.1 g/dL (32.0-36.0); Mean Corpuscular Hemoglobin 24.3 pg (27.0-31.0); Mean Corpuscular Volume 80.5 fL (78.0-98.0); Mean Platelet Volume 9.3 fL (7.4-10.4); Platelet Count 275 thou/uL (130-400); RBC Distribution Width 17.4 % (11.5-14.5); Red Blood Cell (RBC) Count 5.31 mill/uL (4.20-5.40); White Blood Cell (WBC) Count 9.5 thou/uL (4.8-10.8)
[2018-12-22 16:32] LABS: #Basophils 0.1 thou/uL (0.0-0.2); #Eosinphils 0.1 thou/uL (0.0-0.7); #Lymphocytes 1.4 thou/uL (1.20-3.40); #Monocytes 0.8 thou/uL (0.11-0.59); #Neutrophils 7.1 thou/uL (1.40-6.50); %Basophils 1.2 % (0.0-1.0); %Eosinophils 0.9 % (0.0-10.0); %Lymphocytes 15.1 % (21.0-51.0); %Monocytes 8.3 % (0.0-10.0); %Neutrophils 74.4 % (42.0-75.0)
[2018-12-22 16:33] LABS: Anisocytosis SLIGHT = 6-15 cells (100X) (0-5/hpf); Elliptocytes SLIGHT = 2-5 cells (100X) (0-1/hpf); Hypochromia SLIGHT = 6-15 cells (100X) (0-5/hpf); MDiff Complete? YES; Microcytosis SLIGHT = 6-15 cells (100X) (0-5/hpf); Ovalocytes SLIGHT = 2-5 cells (100X) (0-1/hpf); Platelet Morphology Comment Appears Adequate; Polychromasia SLIGHT = 2-3 cells (100X) (0-2/hpf); Stomatocytes SLIGHT = 2-5 cells (100X) (0-1/hpf)
[2018-12-22 16:34] LABS: ALT (SGPT) 12 U/L (8-55); AST (SGOT) 12 U/L (5-34); Albumin 3.8 g/dL (3.4-4.8); Alkaline Phosphatase 73 U/L (40-150); Anion Gap 11 mmol/L (10-20); BUN (Urea Nitrogen) 11 mg/dL (9.8-20.1); Bilirubin, Total 0.3 mg/dL (0.2-1.2); Calc. Creatinine Clearance 0 mL/min (70-130); Calcium 8.9 mg/dL (7.8-10.44); Carbon Dioxide 30 mmol/L (23-31); Chloride 97 mmol/L (98-107); Estimated GFR-MDRD 76; Globulin 2.7 g/dL (2.4-3.5); Glucose 114 mg/dL (83-110); Potassium 3.5 mmol/L (3.5-5.1); Protein, Total 6.5 g/dL (6.0-8.3); Sodium 134 mmol/L (136-145)
[2018-12-22 16:36] LABS: Acetaminophen Less than 6.0 mcg/mL (10.0-30.0); Alcohol Less than 10 mg/dL (Less than 10); CK (CPK) 26 U/L (29-168); Lipase 47 U/L (8-78); Salicylate Less than 8.0 mg/dL (15.0-30.0)
[2018-12-22] MEDS ORDERED: Aspirin Chewable 81 MG TAB ONE (16:45)
--- NOTE | 2018-12-22 16:53 | CT ---
BRAIN CT WITHOUT IV CONTRAST: History: Altered mental status. Comparison: 12-07-18 FINDINGS: There is some bilateral atrophy and chronic white matter ischemic change. No focal mass or midline sh ift. No intra or extraaxial hemorrhage. Sinuses and mastoids are clear. IMPRESSION: Atrophy and chronic white matter ischemic changes, stable. No mass or bleed or other acute process. POS: [facility]
[2018-12-22 17:09] LABS: Bilirubin Negative (Negative); Blood, Urine Negative (Negative); Clarity Hazy (Clear); Glucose, Urine (Dipstick) Negative (Negative); Leukocyte Small (Negative); Nitrite Negative (Negative); Protein, Urine (Dipstick) Negative (Neg-Trace); Specific Gravity, Urine 1.015 (1.005-1.030); Urobilinogen 0.2 mg/dL (0.2-1.0); pH, Urine 6.5 (5.0-9.0)
[2018-12-22 17:11] LABS: Bacteria/HPF 1+ HPF (None Seen); RBC/HPF None Seen HPF (0-3)
[2018-12-22 17:20] LABS: Amphetamine Not Detected (NotDetected); Barbiturates Screen Not Detected (NotDetected); Benzodiazepine Screen Not Detected (NotDetected); Cocaine Metabolite Screen Not Detected (NotDetected); Medtox Control Line Valid? VALID (VALID); Methadone Not Detected (NotDetected); Methamphetamine Not Detected (NotDetected); Opiate Screen Not Detected (NotDetected); Oxycodone Screen Not Detected (NotDetected); Phencyclidine (PCP) Not Detected (NotDetected); THC/Cannabinoid Screen Not Detected (NotDetected); Tricyclic Screen Not Detected (NotDetected)
[2018-12-22] MEDS: Sodium Chloride 0.9% 1,000 ML IV SCH (19:25)
[2018-12-22 20:31] VITALS: BMI 31.4
[2018-12-22] MEDS ORDERED: BIOTENE MOUTH SPRAY 44.3 ML PO PRN (21:04)
[2018-12-22] MEDS ORDERED: Lorazepam 2 MG/ML VIAL SLOW IVP PRN (21:04)
[2018-12-22] MEDS ORDERED: Senokot S 8.6-50 MG TAB PO PRN (23:07)
[2018-12-22] MEDS ORDERED: HYDROcodone/Acetaminophen 5/325 mg Tablet PO PRN (23:07)
[2018-12-22] MEDS ORDERED: Acetaminophen 325 MG TAB PO PRN (23:07)
--- NOTE | 2018-12-23 03:45 | HP ---
PRIMARY CARE PROVIDER: Dr. Harding. CHIEF COMPLAINT: Altered mental status. HISTORY OF PRESENT ILLNESS: Ms. Leonardo is a 73-year-old female who reported to the emergency room today by family for all altered mental status, intermittent since Saturday. Son at the bedside reports that his mom was having episodes where she did not know family, was trying to open the freezer door thinking that was the bathroom, paced quite a bit, reports at one point that she was in her chair slumped down. He reports a droop to one side, some drooling and then that cleared and she woke up and she was awake and alert and oriented. The patient reports that it seems to be worse in the evenings. Reports that they did take her on Saturday to the emergency room in [place], was diagnosed with dementia and sent home. NIH scale when she arrived in the [facility] was 9 and 10 respectively. The patient does have past medical history of aortic stenosis treated with a pacemaker, valvular disease with replacement, hypothyroidism, Sjogren's disease. CT of the brain in the emergency room, no acute findings. UA, positive for leukocyte esterase, white blood cell count, squamous cells and 1+ bacteria that has been sent off for culture. Urine drug screen negative. The patient admitted to the stroke unit for further management. PAST MEDICAL HISTORY: 1. Positive for allergy induced asthma. 2. Hypothyroidism. 3. Pacemaker. 4. Status post aortic valve replacement. 5. Sjogren's syndrome. 6. Restless leg syndrome. 7. Hypertension. PAST SURGICAL HISTORY: Includes: Previous aortic valve replacement. Status post permanent pacemaker. The patient has a dual-chamber pacemaker. SOCIAL HISTORY: Lives at home with her . She is normally fully independent. Does not require any assistive devices for mobility. Denies any smoking history, any alcohol use. ALLERGIES: 1. ATROPINE. 2. PENICILLINS. HOME MEDICATIONS: Include: 1. Norvasc 5 mg p.o. daily. 2. Wellbutrin 100 mg p.o. b.i.d. 3. Ferrous gluconate 324 tab p.o. daily. 4. Levothyroxine 100 mcg p.o. daily. 5. Lisinopril 20 mg p.o. b.i.d. 6. Toprol-XL 25 mg p.o. b.i.d. REVIEW OF SYSTEMS: Reports confusion. Denies any pain. Denies any fever, chills. Denies any chest pain, cough, shortness of breath. All other systems reviewed and negative unless mentioned in the HPI. PHYSICAL EXAMINATION: VITAL SIGNS: Temp is 98.0, pulse is 71, respirations are 18, pO2 sats are 96% on room air, blood pressure is 156/68. CONSTITUTIONAL: The patient appears nontoxic, is in no acute distress. She is alert and oriented. She knows where she is. She knows her full name. She knows her date. She knows she is in the hospital. She does not always answer questions appropriately, but can be easily redirected, follows commands. HEENT: Head is atraumatic and normocephalic. Eyes, pupils are equally round and reactive to light. Extraocular muscles are intact. NECK: Trachea is midline. Normal range of motion. RESPIRATORY: Chest, breath sounds are clear. Chest expansion is equal. CARDIOVASCULAR: Regular heart rate and rhythm. Heart sounds are normal. ABDOMEN: Nontender. Bowel sounds are heard. BACK: Normal inspection. Normal range of motion. EXTREMITIES: Upper extremity, normal inspection, normal range of motion. Sensation is intact. Lower extremity, normal inspection, normal range of motion. Pedal pulses equal bilaterally. NEUROLOGIC: The patient is oriented to person, place, and time. Speech is normal. SKIN: Warm, dry and normal in color. IMAGING: EKG has a paced rhythm, beats per minute 82, no ST elevation. PERTINENT LABORATORY DATA: White blood cell count is 9.5, hemoglobin is 12.9, hematocrit is 42.8, and platelet count is 275. Sodium is 134, potassium is 3.5, chloride is 97, carbon dioxide is 30, gap is 11, BUN is 11, creatinine is 0.75, estimated GFR is 76, glucose is 114, lactic acid 0.6, calcium is 8.9. Liver enzymes are unremarkable. Troponin x1 is undetectable. Lipase is 47. TSH is 2.52. UA, positive for leukocyte esterase, white blood cell count 46, squamous cell 7 to 10, bacteria +1. Toxicology negative. PLAN/ASSESSMENT: 1. Altered mental status, confusion, abrupt onset, possible transient ischemic attack, urinary tract infection. We will obtain an MRI in the morning. Doppler ultrasounds, echocardiogram. We will ask Neurology to consult. 2. Urinary tract infection. The patient in October was on Levaquin on discharge. ED physician reported that she was on Keflex, but I do not find this in her home med rec. We will start her on Bactrim until the cultures return. 3. Hypertension. We will continue home medications, we will trend. 4. Anemia. We will continue home medications. 5. Hypothyroidism. We will check thyroid stimulating hormone. Restart home medications. 6. Deep venous thrombosis and gastrointestinal and gastrointestinal prophylaxis will be started. 7. Per patient and son at the bedside, she is a full code. Son does mention that she might have an [id number] DNR, but states that is her surrogate decision maker and he would have to bring those up, if they do exist. 8. Hospital course will be dependent on clinical findings. Job ID: [id number]
[2018-12-23 05:49] LABS: #Eosinphils 0.1 thou/uL (0.0-0.7); #Lymphocytes 1.2 thou/uL (1.20-3.40); #Neutrophils 4.5 thou/uL (1.40-6.50); %Basophils 0.6 % (0.0-1.0); %Eosinophils 1.3 % (0.0-10.0); %Lymphocytes 17.7 % (21.0-51.0); %Monocytes 14.1 % (0.0-10.0); %Neutrophils 66.4 % (42.0-75.0); Hemoglobin 11.9 g/dL (12.0-16.0); Mean Corpuscular HGB CONC 31.1 g/dL (32.0-36.0); Mean Corpuscular Hemoglobin 25.3 pg (27.0-31.0); Mean Corpuscular Volume 81.4 fL (78.0-98.0); Mean Platelet Volume 9.7 fL (7.4-10.4); Platelet Count 222 thou/uL (130-400); RBC Distribution Width 16.3 % (11.5-14.5); White Blood Cell (WBC) Count 6.7 thou/uL (4.8-10.8)
[2018-12-23 06:01] LABS: ALT (SGPT) 13 U/L (8-55); AST (SGOT) 12 U/L (5-34); Albumin 3.4 g/dL (3.4-4.8); Alkaline Phosphatase 63 U/L (40-150); Anion Gap 11 mmol/L (10-20); BUN (Urea Nitrogen) 8 mg/dL (9.8-20.1); Bilirubin, Total 0.3 mg/dL (0.2-1.2); Calc. Creatinine Clearance 98 mL/min (70-130); Calcium 8.9 mg/dL (7.8-10.44); Carbon Dioxide 28 mmol/L (23-31); Cardiac Risk 4.1 (Less than 4.5); Chloride 100 mmol/L (98-107); Cholesterol 143 mg/dl (< 200 Desired); Estimated GFR-MDRD 90; Globulin 2.4 g/dL (2.4-3.5); Glucose 88 mg/dL (83-110); HDL Cholesterol 35 mg/dL (>60 Neg Risk); LDL Cholesterol, Calculated 86 mg/dL; Protein, Total 5.8 g/dL (6.0-8.3); Sodium 135 mmol/L (136-145); Triglycerides 109 mg/dL (Less than 150)
[2018-12-23] MEDS: Sodium Chloride 0.9% 1,000 ML IV SCH (06:27)
[2018-12-23] MEDS ORDERED: Sulfameth/Trimethoprim DS 800-160mg TAB PO SCH (09:00)
[2018-12-23] MEDS: Famotidine 20 MG TAB PO SCH ×2 (09:14→20:12)
[2018-12-23] MEDS: Enoxaparin Sodium 40 MG/0.4 ML SYRINGE SC SCH (09:14)
[2018-12-23] MEDS ORDERED: Lisinopril 20 MG TAB PO SCH (12:30)
[2018-12-23] MEDS ORDERED: Amlodipine 5 MG TAB PO SCH (12:30)
--- NOTE | 2018-12-23 13:45 | ULT ---
BILATERAL CAROTID DUPLEX ULTRASOUND: DATE: 12/23/18 HISTORY: TIA, altered mental status. TECHNIQUE: Polo scale ultrasound with color flow and spectral Doppler imaging of the extracranial carotid artery systems performed. FINDINGS: There is plaque formation noted on either side. The peak systolic velocity in the right ICA measures 42 cm/second with an end-diastolic velocity of 1 0 cm/second and a systolic ratio of 0.50. The peak systolic velocity in the left ICA measures 63 cm/second with an end-diastolic velocity of 4 cm/second and a systolic ratio of 0.93. Flow in both vertebral arteries remains antegrade. IMPRESSION: No evidence of hemodynamically significant stenosis. POS: TPC
[2018-12-23] MEDS ORDERED: cefTRIAXone\\ROCEPHIN 1 GM in Sodium Chloride 0.9% 100 ML IVPB SCH (14:00)
--- NOTE | 2018-12-23 19:52 | PRG ---
DATE OF SERVICE: 12/23/2018 SUBJECTIVE: Ms. Leonardo is a 73-year-old female with past medical history significant for aortic stenosis, status post tissue AVR several years ago, status post MRI compatible pacemaker, history of Sjogren syndrome, and hypertension, who presented to the hospital with complaints of altered mental status. Per , the patient has had some increasing memory issues and confusion dating back to her last hospitalization in October. In any case, her confusion seemed to be worsening and she has had several recent ER admissions with negative workup aside from UTI. She is positive for UTI here with cultures preliminary showing Enterococcus. and son at bedside and provide some of the history. The patient this morning and this afternoon upon both of my interviews does appear to be mildly confused, but pleasant. She is not oriented to time or place, but to person. She does answer some of her questions appropriately, although cannot provide any details on circumstances of her arrival at the hospital. She denies any chest pain, shortness of breath, nausea, vomiting, or diarrhea to me. She denies any other physical complaints. She has had a good appetite. She denies any dysuria. OBJECTIVE: VITAL SIGNS: Blood pressure 139/69, O2 saturation 96%, respirations 18, pulse 89, temperature afebrile at 97.9. GENERAL: This is an elderly female, who appears her stated age, in no acute distress. HEENT: Head; atraumatic, normocephalic. Mucous membranes appear moist. Extraocular movements intact. CV: S1 and S2. Regular rate and rhythm. No appreciable murmurs, rubs, or gallops. LUNGS: Regular respiratory rate and pattern. Clear to auscultation bilaterally. ABDOMEN: Positive bowel sounds. Nontender, soft. Mildly obese. EXTREMITIES: Lower extremities are warm and well perfused. +2 DP pulses. No edema. SKIN: Warm and dry. No rashes or abrasions. NEUROLOGIC: The patient is awake and alert, only oriented to person. She appears to be nonfocal at this time. Cranial nerves 2 through 12 are intact. LABORATORY DATA: Urine culture positive for gram-negative no, 10 to 25,000 CFUs per mL, organism too presumptive of Enterococcus with greater than 100,000 CFUs per mL. White blood cell count 6.7, RBC 4.7, hemoglobin 11.9, hematocrit 38.3, platelet count 222. Sodium 135, potassium 4.0, chloride 100, anion gap 11, carbon dioxide 28, creatinine 0.65, estimated GFR 90. Liver function tests all within normal limits. Troponin is negative. Triglycerides 109, cholesterol 143, LDL of 86, HDL 35, lipase 47. UA positive for 1+ bacteria, and small amount of leukocyte esterase along with 4 to 6 white blood cells. ASSESSMENT: 1. Altered mental status, this may have been exacerbated by the patient's current urinary tract infection along with some underlying dementia. 2. Urinary tract infection. We will continue Rocephin at this time and await sensitivities. 3. Aortic stenosis, status post tissue aortic valve replacement. 4. The patient with dual chamber pacemaker, MRI compatible. 5. History of Sjogren syndrome. 6. History of hyponatremia. 7. Hypertension. 8. Hypothyroidism. PLAN: At this point, we will continue empiric antibiotic coverage for her UTI and await sensitivities. The patient has refused MRI secondary to anxiety, and this will have to be addressed. As mentioned, I have had a long conversation with the patient's and he states that there were some symptoms and signs of dementia and associated behavior starting months ago, so her baseline orientation is somewhat difficult to discern. In any case, we will continue to treat any infectious cause for her AMS, and attempt an MRI in the morning with anti-anxiolytic on board. Care discussed with Dr. Esquivel, who agrees with the above. Job ID: [id number]
[2018-12-23] MEDS: Lisinopril 20 MG TAB PO SCH (20:13)
--- NOTE | 2018-12-23 23:19 | CON ---
DATE OF CONSULTATION: 12/23/2018 CONSULTING PHYSICIAN: Hospitalist Services. IMPRESSION: Transient period of confusion and alteration of consciousness, suggestive of possible nonconvulsive seizure. PLAN: Monitor for further events as an outpatient. HISTORY OF PRESENT ILLNESS: Ms. Leonardo is a 73-year-old white female with a history of cardiac disease with pacemaker implantation, who was at home with her family. Reportedly, she was acting oddly, opening the freezer door thinking it was pathway to the bathroom. She went and sat down in a chair and slumped over. She seemed to be unresponsive for short interval time according to the H and P and then when she awoke, she was oriented and appropriate. Her brought her to the hospital. He is not here to obtain any history. She is unable to give me any details as to what took place at the house as far she is concerned. She is back to her normal baseline function. PAST MEDICAL HISTORY: Asthma, hypothyroidism, aortic valve replacement, Sjogren syndrome, restless legs, hypertension. PAST SURGICAL HISTORY: Aortic valve replacement, pacemaker implantation. SOCIAL HISTORY: Lives at home with her . No history of tobacco or alcohol use. ALLERGIES: ATROPINE, PENICILLIN. MEDICATIONS: 1. Norvasc. 2. Wellbutrin. 3. Iron. 4. Levothyroxine. 5. Lisinopril. 6. Toprol. REVIEW OF SYSTEMS: She denies any ongoing pain, headache, nausea, vomiting, dizziness, chest pain, lateralized weakness or numbness. The remainder of her review of systems otherwise negative. PHYSICAL EXAMINATION: GENERAL: She is a well-nourished elderly lady, lying in bed, in no distress. VITAL SIGNS: Blood pressure 156/68, pulse 70, respirations 18, and temperature 98. HEENT: Pupils are equal. Oropharynx is clear. Cranium, normocephalic and atraumatic. NECK: Supple. EXTREMITIES: No cyanosis or edema. NEUROLOGIC: She was alert and cooperative. She seemed to have a little difficulty pulling up information, but otherwise had fluent clear speech. She had a symmetric faces and normal eye movements. Arm strength as well as leg strength were both intact bilaterally. Sensation was intact to touch. No tremor or dysmetria is present. Gait was not tested. DIAGNOSTIC STUDIES: EKG shows a paced rhythm. CT of the brain shows small-vessel ischemic changes. The patient refused MRI. Laboratory studies were notable for possible urinary tract infection. SUMMARY: A 73-year-old woman who appears to have some mild cognitive impairment with some transient alteration of awareness, suggestive of possible nonconvulsive seizure versus syncope. Her workup thus far neurologically is negative. I do not see anything further I would do at this point. She needs to be monitored for further events and consider having her pacemaker interrogated to see if there was an arrhythmia. Job ID: [id number]
[2018-12-24] MEDS ORDERED: Lorazepam 2 MG/ML VIAL SLOW IVP PRN (02:17)
[2018-12-24 05:17] LABS: #Eosinphils 0.1 thou/uL (0.0-0.7); #Lymphocytes 1.2 thou/uL (1.20-3.40); #Monocytes 0.8 thou/uL (0.11-0.59); #Neutrophils 4.6 thou/uL (1.40-6.50); %Basophils 0.4 % (0.0-1.0); %Eosinophils 0.9 % (0.0-10.0); %Lymphocytes 17.4 % (21.0-51.0); %Monocytes 11.8 % (0.0-10.0); %Neutrophils 69.4 % (42.0-75.0); Hemoglobin 11.8 g/dL (12.0-16.0); Mean Corpuscular HGB CONC 31.2 g/dL (32.0-36.0); Mean Corpuscular Hemoglobin 25.2 pg (27.0-31.0); Mean Corpuscular Volume 80.8 fL (78.0-98.0); Mean Platelet Volume 9.6 fL (7.4-10.4); Platelet Count 214 thou/uL (130-400); RBC Distribution Width 16.3 % (11.5-14.5); Red Blood Cell (RBC) Count 4.67 mill/uL (4.20-5.40); White Blood Cell (WBC) Count 6.6 thou/uL (4.8-10.8)
[2018-12-24 05:58] LABS: ALT (SGPT) 8 U/L (8-55); AST (SGOT) 12 U/L (5-34); Albumin 3.5 g/dL (3.4-4.8); Alkaline Phosphatase 67 U/L (40-150); Anion Gap 10 mmol/L (10-20); BUN (Urea Nitrogen) 4 mg/dL (9.8-20.1); Bilirubin, Total 0.3 mg/dL (0.2-1.2); Calc. Creatinine Clearance 95 mL/min (70-130); Calcium 9.1 mg/dL (7.8-10.44); Carbon Dioxide 29 mmol/L (23-31); Chloride 99 mmol/L (98-107); Estimated GFR-MDRD 87; Globulin 2.2 g/dL (2.4-3.5); Glucose 89 mg/dL (83-110); Potassium 3.8 mmol/L (3.5-5.1); Protein, Total 5.7 g/dL (6.0-8.3); Sodium 134 mmol/L (136-145)
[2018-12-24] MEDS: Enoxaparin Sodium 40 MG/0.4 ML SYRINGE SC SCH (07:49)
[2018-12-24] MEDS: Famotidine 20 MG TAB PO SCH (07:49)
[2018-12-24] MEDS: Lisinopril 20 MG TAB PO SCH (07:49)
[2018-12-24] MEDS ORDERED: Amlodipine 5 MG TAB PO SCH (09:00)
--- NOTE | 2018-12-24 10:07 | MRI ---
MRI BRAIN WITHOUT CONTRAST: HISTORY: Altered mental status. FINDINGS: Correlation is made with the noncontrasted CT scan of 12/22/2018. There is motion artifact which reduces the sensitivity of exam. No restricted diffusion is seen. No evidence of infarct, hemorrhage, midline shift, or abnormal extr aaxial fluid collections noted. The ventricular size is appropriate and the basilar cisterns patent. There are changes of cortical atrophy and chronic small-vessel ischemic disease. There is fluid in the mastoid air cells. IMPRESSION: No evidence of acute intracranial process. POS: OFF
[2018-12-24 11:49] VITALS: BP 137/63; TEMP 98.6
--- NOTE | 2018-12-25 05:11 | DIS ---
DATE OF ADMISSION: 12/22/2018 DATE OF DISCHARGE: 12/24/2018 ALLERGIES: ATROPINE AND PENICILLIN. CHIEF COMPLAINT: Altered mental status. FINAL DIAGNOSES: 1. Altered mental status, likely secondary to urinary tract infection, also in differential is possible seizure per Neurology; the patient also likely has an underlying dementia at baseline as well. 2. Urinary tract infection. Cultures positive for enterococcus and Pseudomonas aeruginosa. 3. The patient with MRI compatible pacemaker, normal functioning per interrogation. 4. History of Sjogren and hyponatremia, stable. 5. Hypertension. 6. Hypothyroidism. LABORATORY RESULTS: White blood cell count 6.6, hemoglobin 11.8, hematocrit 37.7, platelet count is 214. Sodium 134, potassium 3.8, chloride 99, anion gap 10, BUN 4, creatinine 0.67. AST, ALT, and alkaline phosphatase are all within normal limits. Triglycerides 109, cholesterol 143, LDL 86, HDL 35. TSH 2.2396. Urinalysis was positive for leukocyte esterase and 1+ bacteria. Urine culture and sensitivity revealed Pseudomonas aeruginosa [id number] CFU per mL and Enterococcus faecalis greater than 100,000 CFU per mL, both showed sensitivities to Cipro. IMAGING RESULTS: Brain CT; atrophy and chronic white matter ischemic changes, which were stable. Echocardiogram report showed normal left ventricular systolic size and function with EF 55% to 60%, mild concentric left ventricular hypertrophy, mild to moderate aortic stenosis. Carotid Doppler; no evidence of hemodynamically significant stenosis in either of the internal carotid arteries. Brain MRI showed no evidence of acute intracranial process. CONSULTATIONS: Dr. Buitrago of Neurology. VITAL SIGNS: Blood pressure 137/63, O2 saturation is 97% on room air, respirations 18, pulse is 80. HOSPITAL COURSE: The patient is a pleasant, 73-year-old female with past medical history significant for Sjogren's disease, hyponatremia, hypertension, history of tissue aortic valve replacement, and dual-chamber pacemaker, who presented to the hospital with a 3-week history of worsening altered mental status per the patient's family. She does live at home with her . He reports that she has been having increased confusion, including trying to open the freezer door, thinking that it was the bathroom, and he even reports that at one point, she was trying to eat some of her face cream in the bathroom. At some point prior to admission, the states that his slumped down on his chair, seem to droop to one side and had some drooling. She abruptly woke up from this and then became more alert. had taken his to the emergency room on several occasions prior to her admission at this facility. She was diagnosed with UTI and placed on Keflex, but because of her worsening confusion at home, her brought her to this facility for further workup and treatment. Workup for TIA and stroke was negative as outlined above. Urine culture did reveal Pseudomonas aeruginosa and Enterococcus faecalis, and she was treated for this. This morning, the patient is much more alert and oriented. She is oriented to person and place today. She is conversive and answering questions appropriately. Her is at the bedside and also states that she is much improved. The patient herself denies any chest pain or shortness of breath. She denies any dysuria. She has had no nausea, vomiting, or abdominal pain. She has ambulated without issue. PHYSICAL EXAMINATION: GENERAL: The patient is a mildly obese, female, sitting up in a chair , in no acute distress. HEENT: Head is atraumatic and normocephalic. Mucous membranes are moist. NECK: Supple. No lymphadenopathy. No carotid bruits. No JVD. Trachea is midline. CV: S1 and S2. Regular rate and rhythm. No appreciable murmurs, rubs, or gallops. LUNGS: Regular respiratory rate and pattern. Clear to auscultation bilaterally. ABDOMEN: Positive bowel sounds. Soft and nontender. EXTREMITIES: No edema. SKIN: Warm and dry. No rashes. NEUROLOGIC: Cranial nerves II through XII are intact. The patient is nonfocal. PSYCHIATRIC: The patient is alert and oriented to place and person, which is her baseline. She does not appear confused today. CONDITION AT DISCHARGE: Stable. DISCHARGE MEDICATIONS: The patient will continue her home medications which include; 1. Amlodipine 5 mg one tablet p.o. daily. 2. Bupropion 100 mg tablet, one tablet p.o. b.i.d. 3. Ferrous gluconate 324 mg tablet, one tablet daily. 4. Levothyroxine 100 mcg tablet daily. 5. Lisinopril 20 mg tablet p.o. b.i.d. 6. Metoprolol succinate 25 mg tablet, one tablet p.o. b.i.d. New medication will be ciprofloxacin 500 mg tablet, one tablet p.o. q.12 hours x7 days. DISCHARGE DISPOSITION: Home. PLAN: The patient will continue her medications as outlined above. I have had extensive conversation with both the patient's son and the patient's regarding concern for possibly underlying dementia given her general decline over the last 6 months per . In any case, it is likely that the UTI could be the culprit for her delirium, and this is much improved. She will follow up with her primary care physician as well as her global marketing specialist, Dr. Jones. Neurology did not recommend any new medications or intervention at this time. Care discussed with Dr. Esquivel who agrees with the above. Job ID: [id number] [id number]
== END 2018-12-24 13:23 | disposition home or self-care (01) ==
LOC: SCSER 15:41 → SDC/OP 16:14 → UNDOADMOB 16:48 → 2SE 16:48 → SDC/OP 12-24 13:23 → UNDODISOB 12-24 13:23
PROVIDERS: ATTEND Internal Medicine
DX: R41.82 Altered mental status, unspecified (principal); R41.0 Disorientation, unspecified; N39.0 Urinary tract infection, site not specified; B96.5 Pseudomonas (aeruginosa) (mallei) (pseudomallei) as the cause of diseases classified elsewhere; B95.2 Enterococcus as the cause of diseases classified elsewhere; E03.9 Hypothyroidism, unspecified; M35.00 Sjogren syndrome, unspecified; G25.81 Restless legs syndrome; I10 Essential (primary) hypertension; D64.9 Anemia, unspecified; J45.909 Unspecified asthma, uncomplicated; E87.1 Hypo-osmolality and hyponatremia; Z66 Do not resuscitate; Z79.899 Other long term (current) drug therapy; Z88.0 Allergy status to penicillin; Z88.8 Allergy status to other drugs, medicaments and biological substances; Z95.0 Presence of cardiac pacemaker; Z95.2 Presence of prosthetic heart valve
CPT/HCPCS: 36415; 70450; 70551; 80053; 80061; 80306; 80307; 81003; 81015; 82140; 82550; 83605; 83690; 84443; 84484; 85025; 87077; 87086; 87186; 93005; 93306; 93880; J0696; J1650; J2060; J3490